=== PATIENT | female | born 1985 | race Caucasian/White ===

== ENCOUNTER 2018-10-14 06:25 | Inpatient (IN) | payer OTHER ==
[2018-10-14] MEDS ORDERED: Buffered Lidocaine 1% SYRIN* 1 ML/SYRINGE INTRADERM ONE (08:11)
[2018-10-14] MEDS ORDERED: Lactated Ringers 1000 ML Bag* 1,000 ML IV ONE (08:11)
--- NOTE | 2018-10-14 08:20 | HP ---
General Information - Reason for Visit Contractions every 5 minutes since 6AM, + FM, -LOF, -VB. - General Information Maternal Age: 33 Grav: 1 Para: 0 SAB: 0 IEA: 0 Estimated Due Date: 10/12/18 Maternal Blood Type and Rh: B Positive - Results this Serology/RPR Result: Non-Reactive Rubella Result: Immune HBsAg Result: Negative HIV Result: Negative GBS Culture Result: Negative Past Medical History Pertinent Past Medical History: Non-Contributory Pertinent Past Surgical History: None Pertinent Family History: See Records - F:HTN, high chol, DM; brother : HTN, high chol - Antepartal Records Antepartal Records: Reviewed, Complicated by: - choroid plexus cysts ( resolved), low lying placenta (resolved) Review of Systems Constitutional: Uncomfortable CV Complaint: No Respiratory: Shortness of Breath: No Gastrointestinal: No Nausea/Vomiting, Normal Bowel Movement Genitourinary: No Dysuria, No Bleeding, No Leaking Fluid Musculoskeletal: Contractions Neurological: No Headache, No Visual Changes Movement: Normal Exam Allergies/Adverse Reactions: Allergies METALS Allergy (Severe, Uncoded 10/21/13 18:55) SKIN REACTION T:98.9, P:63, R:19, BP: 135/75, O2:100% - Measurements Height: 5 ft 11 in Weight: 171 lb Weight in lbs: 171.948486 Body Mass Index (BMI): 23.8 Pre- Weight: 145 lb Weight Gained This : 26 lbs and 0 ozs - Exam Breast: Breast Exam Deferred CVA: No CVA Tenderness Extremities: No Edema Heart: Normal Rhythm/Heart Sounds HEENT: No Significant Findings Lungs: Clear Bilaterally Rectal: Rectal Exam Deferred Reflexes: DTR 2+ Thyroid: No Thyromegaly - Abdominal Exam Abdomen Exam: Fundal Height Consistent with Dates - Ultrasound/Biophysical Profile Ultrasound Status: Not Done Targeted Exam Findings See L&D Outpatient Visit Provider Note for Findings: Yes Estimated Weight: 7lbs Cervical Exam: 7cm Effacement: Thin Station: 0 Presenting Part: Vertex Membrane Status: Intact Bleeding/Discharge: None EFM Findings - External Monitor Findings Baseline Heart Rate: 130 External Monitor Findings: Accelerations Present, No Pattern of Variable or Late Decelerations, Variability Moderate, Baseline Stable External Monitor Findings Comment: 2-4 Contractions: Regular, Moderate, 45-90 Seconds Assessment/Plan - Assessment 33 y.o. , active labor, Cat I NST, GBS negative, VSS, afebrile - Plan Plan: Admit - Anticipate Vaginal Delivery - Date/Time of Admission Date of Admission: 10/14/18 Time of Admission: 07:30
[2018-10-14] MEDS ORDERED: Lactated Ringers 1000 ML Bag* 1,000 ML IV SCH ×2 (09:00→16:00)
[2018-10-14 11:16] LABS: ABS Basophils 0.1 10^3/ul (0-0.2); ABS Neutrophils 14.6 10^3/ul (1.5-7.7); Hematocrit 33 % (35-47); Hemoglobin 10.5 g/dL (12.0-16.0); Lymphocyte % 6.3 %; Mean Corpuscular HGB Conc 31 g/dL (31-36); Mean Corpuscular Hemoglobin 23 pg (27-31); Mean Platelet Volume 9.4 fL (7.4-10.4); Platelet Count 271 10^3/uL (150-450); Red Blood Count 4.65 10^6 /uL (3.70-4.87); Red Cell Distribution Width 16 % (10-15); White Blood Count 16.7 10^3/uL (3.5-10.8)
[2018-10-14 11:50] LABS: Mean Corpuscular Volume 72 fL (80-97)
[2018-10-14] MEDS ORDERED: Glycerin ADULT SUPP PR PRN (15:39)
[2018-10-14] MEDS ORDERED: OXYTOCIN* 10 UNITS/ML 1 ML VIAL IM ONE (15:39)
[2018-10-14] MEDS ORDERED: Dibucaine 1% 28.35 GM TUBE PR PRN (15:39)
[2018-10-14] MEDS ORDERED: Witch Hazel PAD* JAR TOPICAL PRN (15:39)
[2018-10-14] MEDS ORDERED: Acetaminophen TAB* 325 MG PO PRN (15:39)
--- NOTE | 2018-10-14 15:39 | PROCNOTE ---
[facility] OB: Delivery Note - Delivery A Date of : 10/14/18 Time of : 14:45 Sex: Female Score 1 Minute: 8 Score 5 Minutes: 9 Gestational Age in Weeks and Days at Delivery: 40 Weeks and 2 Days Delivery Method: Spontaneous Vaginal Labor: Spontaneous Amniotic Fluid: Meconium Estimated Blood Loss: 300 Anesthesia/Analgesia: None Delivered By: Lilly Martinez - Nursery Level of Nursery: Regular/Bedside - Perineum Perineal Injury: Perineal Laceration, 2nd Degree Perineal Repair: By Delivering Practioner - Events Delivery Events of Note: Pitocin Only After Delivery
[2018-10-14] MEDS ORDERED: Simethicone TAB* 80 MG TAB.CHEW PO SCH (17:30)
[2018-10-14] MEDS: Ibuprofen TAB* 600 MG PO PRN (18:15)
[2018-10-14] MEDS: Docusate CAP* 100 MG PO SCH (21:16)
[2018-10-15] MEDS: Ibuprofen TAB* 600 MG PO PRN ×3 (01:46→18:12)
[2018-10-15 07:36] LABS: ABS Lymphocytes 1.3 10^3/ul (1.0-4.8); ABS Monocytes 1.2 10^3/ul (0-0.8); Eosinophil % 0.1 %; Hematocrit 28 % (35-47); Hemoglobin 9.1 g/dL (12.0-16.0); Lymphocyte % 8.1 %; Mean Corpuscular HGB Conc 32 g/dL (31-36); Mean Corpuscular Hemoglobin 23 pg (27-31); Mean Corpuscular Volume 72 fL (80-97); Mean Platelet Volume 8.5 fL (7.4-10.4); Platelet Count 235 10^3/uL (150-450); Red Blood Count 3.95 10^6 /uL (3.70-4.87); Red Cell Distribution Width 16 % (10-15); White Blood Count 16.5 10^3/uL (3.5-10.8)
[2018-10-15] MEDS: Docusate CAP* 100 MG PO SCH ×2 (08:55→18:16)
[2018-10-15] MEDS: Ferrous Gluconate TAB* 324 MG TAB PO SCH (08:55)
[2018-10-15 20:02] VITALS: BP 115/66
[2018-10-16] MEDS: Ferrous Gluconate TAB* 324 MG TAB PO SCH ×2 (00:10→08:56)
[2018-10-16] MEDS: Ibuprofen TAB* 600 MG PO PRN ×2 (00:19→08:00)
[2018-10-16] MEDS ORDERED: Docusate CAP* 100 MG PO SCH (09:00)
== END 2018-10-16 12:40 | disposition home or self-care (01) | DRG 560 ==
LOC: MCHOBOUT 06:25 → MCHOB 07:30
PROVIDERS: ADMIT Midwife; ATTEND Midwife
PROC: 10E0XZZ Delivery of Products of Conception, External Approach (ICD-10-PCS; principal; 2018-10-14)
PROC: 10907ZC Drainage of Amniotic Fluid, Therapeutic from Products of Conception, Via Natural or Artificial Opening (ICD-10-PCS; 2018-10-14)
PROC: 0KQM0ZZ Repair Perineum Muscle, Open Approach (ICD-10-PCS; 2018-10-14)
DX: O48.0 Post-term pregnancy (principal); Z37.0 Single live birth; O70.1 Second degree perineal laceration during delivery; O77.0 Labor and delivery complicated by meconium in amniotic fluid; O90.81 Anemia of the puerperium; D64.9 Anemia, unspecified; Z3A.40 40 weeks gestation of pregnancy
CPT/HCPCS: 36415; 85025; 85060; 86850; 86900; 86901; A9270-GY; J2590

== ENCOUNTER 2019-05-26 16:56 | Emergency (ER) | payer OTHER ==
--- NOTE | 2019-05-26 17:14 | UC ---
Throat Pain/Nasal Bert HPI - HPI Summary HPI Summary: 33 yo female presents with URI symptoms. She tells me that over the last week she has had a dry cough and sinus pain/pressure/congestion. Has been taking OTC cold medicine with no relief. Denies fever, chills, sore throat, rash, SOB, n/ v. She is currently breast feeding. - History of Current Complaint Stated Complaint: COLD,SINUS CONGESTION Time Seen by Provider: 05/26/19 17:14 Hx Obtained From: Patient Hx Last Menstrual Period: 10/20 Onset/Duration: Gradual Onset Severity: Moderate Pain Intensity: 6 Pain Scale Used: 0-10 Numeric - Allergies/Home Medications Allergies/Adverse Reactions: Allergies Allergy/AdvReac Type Severity Reaction Status Date / Time METALS Allergy Severe SKIN Uncoded 10/21/13 18:55 REACTION PMH/Surg Hx/FS Hx/Imm Hx - Additional Past Medical History Additional PMH: None - Surgical History Surgical History: Yes Surgery Procedure, Year, and Place: right breast biopsy - Family History Known Family History: Positive: None - Social History Occupation: Employed Full-time Lives: With Family Alcohol Use: Rare Substance Use Type: None Smoking Status (MU): Never Smoked Tobacco - Immunization History Most Recent Influenza Vaccination: declined Most Recent Tetanus Shot: 2013 Most Recent Pneumonia Vaccination: none Review of Systems All Other Systems Reviewed And Are Negative: No Constitutional: Positive: Negative Skin: Positive: Negative Eyes: Positive: Negative ENT: Positive: Nasal Discharge, Sinus Congestion, Sinus Pain/Tenderness Respiratory: Positive: Cough Cardiovascular: Positive: Negative Gastrointestinal: Positive: Negative Neurological: Positive: Negative Psychological: Positive: Negative Physical Exam - Summary Physical Exam Summary: GENERAL: NAD. WDWN. No pain distress. SKIN: No rashes, sores, lesions, or open wounds. HEENT: Head: AT/NC Eyes: EOM intact. Conjunctiva clear without inflammation or discharge. Ears: Hearing grossly normal. TMs intact, no bulging, erythema, or edema. Nose: Nasal mucosa mildly swollen and erythematous with yellow discharge. TTP maxillary and frontal sinus. Positive post nasal drip Throat: Posterior oropharynx without exudates, erythema, or tonsillar enlargement. Uvula midline. NECK: Supple. Nontender. No lymphadenopathy. CHEST: CTAB. No r/r/w. No accessory muscle use. Breathing comfortably and in no distress. CV: RRR. Pulses intact. NEURO: Alert. PSYCH: Age appropriate behavior. Triage Information Reviewed: Yes Vital Signs: Vital Signs: Temp Pulse Resp BP Pulse Ox 99.3 F 93 20 147/81 96 05/26/19 17:15 05/26/19 17:15 05/26/19 17:15 05/26/19 17:15 05/26/19 17:15 Laboratory Tests 05/26/19 17:30 Influenza A (Rapid) Negative Influenza B (Rapid) Negative Vital Signs Reviewed: Yes Throat Pain/Nasal Course/Dx - Course Course Of Treatment: POC flu negative. Suspect sinusitis. - Differential Dx/Diagnosis Provider Diagnosis: Sinusitis Discharge ED - Sign-Out/Discharge Documenting (check all that apply): Patient Departure All imaging exams completed and their final reports reviewed: No Studies - Discharge Plan Condition: Stable Disposition: HOME Prescriptions: Amoxicillin PO (*) [Amoxicillin 875 MG (*)] 875 mg PO BID #14 tab Patient Education Materials: Sinusitis (ED) Referrals: Huber Daugherty [employer]ET[employer] MANAGER [Primary Care Provider] - Additional Instructions: If you develop a fever, shortness of breath, chest pain, new or worsening symptoms - please call your PCP or go to the ED immediately. Your blood pressure was mildly elevated at todays visit. Please see your primary provider within 4 weeks for recheck and re-evaluation. FLU TEST NEGATIVE TODAY - Billing Disposition and Condition Condition: STABLE Disposition: Home
[2019-05-26 17:19] VITALS: BP 147/81
[2019-05-26 17:41] LABS: Influenza A Molecular NEGATIVE (Negative); Influenza B Molecular NEGATIVE (Negative)
== END 2019-05-26 18:09 | disposition home or self-care (01) ==
LOC: UCEAST 16:56
DX: J32.9 Chronic sinusitis, unspecified (principal); Z91.09 Other allergy status, other than to drugs and biological substances
CPT/HCPCS: 99212; G0463

== ENCOUNTER 2021-08-17 23:44 | Inpatient (IN) ==
[2021-08-18] MEDS ORDERED: Buffered Lidocaine 1% SYRIN 1 ml INTRADERM ONE (00:34)
[2021-08-18] MEDS ORDERED: Lactated Ringers 1000 ml BAG 1,000 ML IV ONE (00:34)
[2021-08-18 01:13] LABS: Urine Benzodiazepine Screen None Detected (None Detect); Urine Cannabinoids Screen None Detected (None Detect); Urine Opiates Screen None Detected (None Detect)
[2021-08-18] MEDS ORDERED: Oxytocin 10 UNITS/ML 1 ML VIAL IM ONE (03:34)
[2021-08-18] MEDS ORDERED: Dibucaine 1% OINT 28.35 GM TUBE PR PRN (03:55)
[2021-08-18] MEDS ORDERED: Witch Hazel PAD JAR TOPICAL PRN (03:55)
[2021-08-18] MEDS ORDERED: Lactated Ringers 1000 ml BAG 1,000 ML IV SCH (04:00)
[2021-08-18] MEDS ORDERED: Lidocaine 1% VIAL 10 MG/ML VIAL ONE (05:17)
[2021-08-19 07:39] VITALS: BP 128/81
[2021-08-19 07:59] LABS: ABS Eosinophils 0.1 10^3/ul (0-0.6); ABS Lymphocytes 1.2 10^3/ul (1.0-4.8); ABS Monocytes 0.8 10^3/ul (0-0.8); ABS Neutrophils 7.3 10^3/ul (1.5-7.7); Eosinophil % 0.7 %; Hematocrit 32 % (35-47); Lymphocyte % 12.6 %; Mean Corpuscular HGB Conc 34 g/dL (31-36); Mean Corpuscular Hemoglobin 28 pg (27-31); Mean Corpuscular Volume 81 fL (80-97); Mean Platelet Volume 8.6 fL (7.4-10.4); Platelet Count 237 10^3/uL (150-450); Red Blood Count 3.98 10^6 /uL (3.70-4.87); Red Cell Distribution Width 13 % (10-15); White Blood Count 9.3 10^3/uL (3.5-10.8)
== END 2021-08-19 12:20 | disposition home or self-care (01) | DRG 560 ==
LOC: MCHOBOUT 23:44 → MCHOB 08-18 00:11
PROVIDERS: ADMIT Advanced Practice Midwife; ATTEND Advanced Practice Midwife